=== PATIENT | male | born 1985 | race Caucasian/White ===

== ENCOUNTER 2021-02-12 19:43 | Emergency (ER) | payer MEDICAID ==
[2021-02-12 19:49] VITALS: BP 151/103; PULSE 99; RESP 18; TEMP 98.1
[2021-02-12] MEDS ORDERED: LIDOCAINE 1%-EPI 1:100,000 20 ML VIAL SQ STA (20:23)
--- NOTE | 2021-02-12 20:40 | ED ---
ENT HPI - General Chief complaint: ENT Stated complaint: Left Ear Pain Time Seen by Provider: 02/12/21 20:08 Source: patient Mode of arrival: ambulatory Limitations: no limitations - History of Present Illness Initial comments: 35 year presents emergency Department with a chief complaint of ear pain. Patient reports a subungual for the past several days with gradual increase in severity. Patient reports a lump and the left earlobe. States it is located slowly posterior and inferior to it. He denies any fevers or chills. Patient reports it is tender to the touch but he denies any discharge. She denies any changes in hearing or discharge from the external auditory canal. Not a diabetic. No pain when pulling on the ear. - Related Data Allergies Allergy/AdvReac Type Severity Reaction Status Date / Time No Known Allergies Allergy Verified 02/12/21 19:49 Review of Systems ROS Statement: Those systems with pertinent positive or pertinent negative responses have been documented in the HPI. ROS Other: All systems not noted in ROS Statement are negative. Past Medical History Past Medical History: No Reported History History of Any Multi-Drug Resistant Organisms: None Reported Past Surgical History: No Surgical Hx Reported Past Psychological History: No Psychological Hx Reported Smoking Status: Never smoker Past Alcohol Use History: None Reported Past Drug Use History: None Reported General Exam Limitations: no limitations General appearance: alert, in no apparent distress Head exam: Present: atraumatic, normocephalic Eye exam: Present: normal appearance, PERRL, EOMI Pupils: Present: normal accommodation ENT exam: Present: normal exam, normal oropharynx, mucous membranes moist, TM's normal bilaterally. Absent: normal external ear exam (No pain on pulling on the ear. No mastoiditis. Patient has a cutaneous abscess noted behind the left earlobe) Neck exam: Present: normal inspection, full ROM. Absent: tenderness, lymphadenopathy Respiratory exam: Present: normal lung sounds bilaterally. Absent: respiratory distress, wheezes, rales, rhonchi, stridor, chest wall tenderness, accessory muscle use Cardiovascular Exam: Present: regular rate, normal rhythm, normal heart sounds Extremities exam: Present: normal inspection, full ROM, normal capillary refill. Absent: tenderness, pedal edema, joint swelling Back exam: Present: normal inspection, full ROM. Absent: tenderness, CVA tenderness (R), CVA tenderness (L) Neurological exam: Present: alert, oriented X3, CN II-XII intact, normal gait Psychiatric exam: Present: normal affect, normal mood Course Vital Signs 02/12/21 19:46 Temperature 98.1 F Pulse Rate 99 Respiratory 18 Rate Blood Pressure 151/103 O2 Sat by Pulse 100 Oximetry Procedures - Incision & Drainage Consent Obtained: verbal consent, written consent Indication: Cutaneous abscess Site: other (Left earlobe) Size (cm): 1 Anesthetic Used: lidocaine 1%, with epi Amount (mLs): 2 I&D Cleaning Method: Alcohol Wipe Sterile Field Used?: No Scalpel Used: #11 Needle Aspiration Performed?: No Irrigation Performed?: No I&D Drainage Obtained: Pus, Blood Culture Obtained?: No Complications: bleeding Patient Tolerated Procedure: well, no complications Medical Decision Making - Medical Decision Making 35-year-old male presents to the emergency department with chief complaint of ear pain. Physical examination patient has an abscess near the posterior left earlobe. Incision and drainage performed with pustular discharge. Patient will be started on Bactrim. No signs of cellulitis. Advised to return if symptoms worsen. Case discussed with Dr. Harley. Disposition Clinical Impression: Cutaneous abscess Disposition: HOME SELF-CARE Condition: Stable Instructions (If sedation given, give patient instructions): Abscess (ED) Additional Instructions: Take prescribed medication as directed. Apply warm compresses multiple times per day. Return to emergency department if symptoms worsen. Follow up with her primary care. Is patient prescribed a controlled substance at d/c from ED?: No Referrals: Armando Duvall DO [Primary Care Provider] - 1-2 days Time of Disposition: 20:40
== END 2021-02-12 20:47 | disposition home or self-care (01) ==
LOC: EC 19:43
DX: H60.02 Abscess of left external ear (principal)
CPT/HCPCS: 10060; 99282